=== PATIENT | male | born 1960 | race Caucasian/White ===

== ENCOUNTER 2017-07-30 09:25 | Observation (INO) | payer MEDICARE, OTHER ==
[~2017-07-30] VITALS: Ht 170.2 cm; Wt 108.9 kg
[~2017-07-30 09:25] MED LIST: ASPIRIN; CIPRO; DILANTIN; LORAPOW30; TRAMADOL; [UNRECOGNIZED DRUG - CODE]
[2017-07-30 10:12] LABS: Basophils # (auto) 0 uL; Basophils % (auto) 0.4 % (0.0-2.0); Eosinophils # (auto) 0.1 uL; Eosinophils % (auto) 1.3 % (0.0-7.0); Hematocrit 46.8 % (41.0-53.0); Hemoglobin 16.4 g/dL (13.5-17.5); Lymphocytes # (auto) 1.9 uL; Mean Corpuscular Hemoglobin 33.7 pg (28.0-32.0); Mean Corpuscular Volume 96.1 fL (80.0-100.0); Monocytes # (auto) 0.3 uL; Monocytes % (auto) 5.6 % (0.0-12.0); Neutrophils # (auto) 3.7 uL; Neutrophils % (auto) 61.7 % (37.0-80.0); Nucleated Red Blood Cells % 0.1 %; Platelet Count (auto) 168 10^3/uL (140-450); Red Blood Cells 4.87 10^6/uL (4.5-5.90)
[2017-07-30 10:42] LABS: Alanine Aminotransferase 70 U/L (16-61); Albumin 3.8 g/dL (3.4-5.0); Amylase 33 U/L (25-115); Anion Gap 8 (5-15); Aspartate Aminotransferase 37 U/L (15-37); BUN/Creatinine Ratio 7.7; Blood Urea Nitrogen 7 mg/dL (7-18); Calcium 8.8 mg/dL (8.5-10.1); Carbon Dioxide 22 mmol/L (21-32); Chloride 104 mmol/L (98-107); GFR African American 110 mL/min; GFR Non-African American 91 mL/min; Glucose 176 mg/dL (74-106); Lipase 188 U/L (73-393); Potassium 4.1 mmol/L (3.5-5.1); Sodium 134 mmol/L (136-145)
[2017-07-30 10:44] LABS: Alkaline Phosphatase 52 U/L (45-117); Bilirubin, Total 0.2 mg/dL (0.2-1.0); Total Protein 7.9 g/dL (6.4-8.2)
[2017-07-30] MEDS: PHENYTOIN IV DILANTIN 1,000 MG in SODIUM CHL 0.9% 250 ML IV ONE ×2 (16:44→17:35)
[2017-07-30 19:46] VITALS: BP 148/89
[2017-07-30] MEDS ORDERED: HYDROcodone-ACET 5/325MG TAB PO PRN (21:30)
[2017-07-30] MEDS ORDERED: ACETAMINOPHEN 500 MG TAB PO PRN (21:30)
[2017-07-30] MEDS ORDERED: LORazepam 2MG/ML-1ML VIAL IV PRN (21:30)
[2017-07-30] MEDS ORDERED: ONDANSETRON HCL 4 MG/2 ML VIAL IV PRN (21:30)
[2017-07-30 21:40] LABS: Urine Bacteria NONE SEEN /hpf (None Seen); Urine Blood TRACE /uL (Negative); Urine Specific Gravity 1.011 (1.001-1.035); Urine WBC <1 /hpf (0 - 3)
== END 2017-07-30 21:10 | disposition left against medical advice (07) | DRG 446 ==
LOC: ER 09:30 → OVERFLOW 15:38 → ER 21:10
PROVIDERS: ADMIT Family Medicine; ATTEND Family Medicine
DX: K80.20 Calculus of gallbladder without cholecystitis without obstruction (principal); F12.10 Cannabis abuse, uncomplicated; F17.210 Nicotine dependence, cigarettes, uncomplicated; I10 Essential (primary) hypertension; G43.909 Migraine, unspecified, not intractable, without status migrainosus; F41.9 Anxiety disorder, unspecified; Z82.49 Family history of ischemic heart disease and other diseases of the circulatory system
CPT/HCPCS: 36415; 71020; 74176; 80053; 80185; 81001; 82150; 83036; 83690; 84484; 85025; 93005; 96365; 99285; G0378; J1165; J7050